=== PATIENT | male | born 1965 | race Caucasian/White ===

== ENCOUNTER 2018-11-10 13:45 | Outpatient (RCR) | payer OTHER, SELFPAY ==
--- NOTE | 2018-10-31 08:43 | PT.OIE ---
Current Diagnoses Pain in right shoulder (10/30/18) Other shoulder lesions, right shoulder (10/30/18) Provider Visit Care Team Role Provider Type Penny Aaron MD Attending Provider Physician Primary Care Provider Specialty: Internal Medicine Address: [address] [place] [address], [id number] Email: Physical Therapy Initial Evaluation PT-OP-A Visit Information Start: 10/30/18 15:46 Freq: Status: Active Protocol: Document 10/30/18 13:00 AMB (Rec: 10/31/18 08:37 AMB [email or web address]) Out-Patient Physical Therapy Visit Information Visit Information Visit Type Initial Evaluation Visit Start Time 13:00 Visit Stop Time 13:55 Total Visit Minutes 55 Visit Number 1 Number of TECHNICAL SOLUTION ARCHITECT Visits 0 Evaluation Information Evaluation Date 10/30/18 PT-OP-B Current Condition Start: 10/30/18 15:46 Freq: Status: Active Protocol: Document 10/30/18 13:00 AMB (Rec: 10/31/18 08:37 AMB [email or web address]) Current Condition History of Current Condition Onset Date September 2018 Current Complaints R shoulder pain History of Current Condition The patient reports some right shoulder discomfort after sleeping on his shoulder wrong years ago. A week ago the pain worsened significantly, and he is unsure exactly why. He does lift a lot at work, but denies a specific painful event. Since that time he has had pain dressing, shifting his trunk into gear, he uses his left arm predominantly at work to avoid pain, and has pain lifting the right arm to shoulder height or above. Prior Treatments and Tests Massage therapy, it hurts at times Prior Functional Status Baseline Function- ADL's Independent Baseline Function- Mobility Independent Current Functional Impairments (Reported) Functional Limitations- ADL's careful and slow with dressing , washing Functional Limitations- Work/School Uses left arm instead of right (pt is right hand dominant) Personal Factors Other Personal Factors That May Effect Pt works 12 hours shifts and Therapy/Recovery this may make it difficult to attend appointments PT-OP-C Subjective Start: 10/30/18 15:46 Freq: Status: Active Protocol: Document 10/30/18 13:00 AMB (Rec: 10/31/18 08:37 AMB [email or web address]) Patient Questionnaires Quick Dash- Upper Extremity Quick Dash UE Score 52 Quick Dash UE Impairment 40 to 59% Impaired (Score 40- 59) OP-PT Pain Assessment Pain Assessment Grid Paper Pain Assessment Grid Completed Yes Location Right Shoulder Pain Location Details anterior/lateral shoulder Intensity 4 Scale Used Numeric (1 - 10) PT-OP-J Posture/Palpation/Skin Start: 10/30/18 15:46 Freq: Status: Active Protocol: Document 10/30/18 13:00 AMB (Rec: 10/30/18 16:22 AMB [email or web address]) Posture Evaluation Comments Posture Comments Mild forward shoulder posture Palpation Assessment Location One Palpation Location R shoulder Palpation Details Tenderness over anterior shoulder into biceps. Tenderness at lateral shoulder down to elbow. PT-OP-K Range of Motion Start: 10/30/18 15:46 Freq: Status: Active Protocol: Document 10/30/18 13:00 AMB (Rec: 10/30/18 16:17 AMB [email or web address]) Shoulder Goniometric Range of Motion Shoulder Measured in Degrees Right Passive Testing Position Supine Flexion 115 Extension 60 Abduction 100 External Rotation at 90 degrees 60 Abduction Internal Rotation 10 Left Passive Shoulder ROM WFL Yes Shoulder ROM Limitations Shoulder ROM Limitations Muscle Weakness Pain PT-OP-L Special Tests Start: 10/30/18 15:46 Freq: Status: Active Protocol: Document 10/30/18 13:00 AMB (Rec: 10/30/18 16:11 AMB [email or web address]) Special Tests Shoulder Special Tests Lift-Off Rotator Cuff Test Results negative Neer Impingement Test Results negative IR/Horizontal ADD Impingement Test Results positive on right PT-OP-M Strength Start: 10/30/18 15:46 Freq: Status: Active Protocol: Document 10/30/18 13:00 AMB (Rec: 10/30/18 16:17 AMB [email or web address]) Shoulder Strength Shoulder Manual Muscle Testing Right Flexion 4 Good Extension 4+ Good+ Abduction (C5) 4- Good- External Rotation 4- Good- Internal Rotation 4- Good- PT-OP-Q Treatments Start: 10/30/18 15:46 Freq: Status: Active Protocol: Document 10/30/18 13:00 AMB (Rec: 10/30/18 16:13 AMB [email or web address]) Therapeutic Exercises Sitting Exercises 1 Sitting Exercise Name brayden Reps/Minutes 2 min ea Comments flex, abd, IR Standing Exercises 2 Standing Exercise Name abd isometric Reps/Minutes 5x10 1 Standing Exercise Name ER isometric Reps/Minutes 510 PT-OP-R Modalities Start: 10/30/18 15:46 Freq: Status: Active Protocol: Document 10/30/18 13:00 AMB (Rec: 10/30/18 16:13 AMB [email or web address]) Hot Pack/Cold Pack Treatment Cold Pack Location R shoulder Patient Position Hooklying Treatment Duration (minutes) 10 PT-OP-T Assessment and Plan Start: 10/30/18 15:46 Freq: Status: Active Protocol: Document 10/30/18 13:00 AMB (Rec: 10/31/18 07:31 AMB [email or web address]) Physical Therapy Assessment Rehab Potential Rehabilitation Potential Good Evaluation Complexity Number of Personal Factors/Comorbidities 1-2 Number of Body Systems Impaired 3 Clinical Presentation at Evaluation Evolving Impairments Impairments Pain Posture ROM Soft Tissue Mobility Strength Goals Three Impairment ADLs Short Term Goal (STG) The patient will perform all upper body dressing with 3/10 shoulder pain or less. STG Duration 4 weeks Heatset Winder Operator Goal (LTG) The patient will drive with his right hand without an increase in baseline pain. LTG Duration 8 weeks Two Impairment Strength Short Term Goal (STG) The patient will lift 5# to shoulder height without an increase in shoulder pain. STG Duration 4 weeks Heatset Winder Operator Goal (LTG) The patient will lift 20# to shoulder height without an increase in pain. LTG Duration 8 weeks One Impairment ROM Short Term Goal (STG) The patient will increase his active flexion ROM to 160 degrees without an increase in pain. STG Duration 4 weeks Senior Care Goal (LTG) The patient will increase his active internal rotation ROM so that he can reach behind his back to don/doff his pants and belt without shoulder pain. LTG Duration 8 weeks Assessment Summary Assessment The patient attends PT with a likely history of shoulder impingement which has worsened now to the point of rotator cuff tendonitis. 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 Pain limits his range of motion in mid range, but he continues to have good range of motion after that painful arc. He does have weakness into external rotation and abduction and restricted range into internal rotation. He will benefit from manual therapy and instruction in a safe exercise program, as well as lifting techniques to reduce the strain on his shoulder given the acute exacerbation of this chronic issue. Physical Therapy Plan Frequency and Duration Frequency of Treatment 2x/Week Duration of Treatment 8 weeks Plan of Care Start Date 10/30/18 Plan of Care End Date 12/25/17 Therapeutic Interventions Therapeutic Interventions Home Exercise Program Joint Mobilizations Manual Therapy Neuromuscular Re-education Self-Care/Home Management Soft Tissue Mobilization Therapeutic Activities Therapeutic Exercises Modalities Cold Pack/Ice Massage Electric Stimulation Hot Packs Ultrasound Next Visit Focus/Plan Next Note Type Treatment Note Next Visit Plan Progress shoulder stabilization, AAROM as tolerated
--- NOTE | 2018-11-02 11:58 | PT.OTN ---
Physical Therapy Treatment Note PT-OP-A Visit Information Start: 10/30/18 15:46 Freq: Status: Active Protocol: Document 11/02/18 09:45 AMB (Rec: 11/02/18 11:58 AMB [email or web address]) Out-Patient Physical Therapy Visit Information Visit Information Visit Type Treatment Note Visit Start Time 09:45 Visit Stop Time 10:30 Total Visit Minutes 50 Visit Number 2 Evaluation Information Evaluation Date 10/30/18 PT-OP-B Current Condition Start: 10/30/18 15:46 Freq: Status: Active Protocol: Document 10/30/18 13:00 AMB (Rec: 10/31/18 08:37 AMB [email or web address]) Current Condition History of Current Condition Onset Date September 2018 Current Complaints R shoulder pain History of Current Condition The patient reports some right shoulder discomfort after sleeping on his shoulder wrong years ago. A week ago the pain worsened significantly, and he is unsure exactly why. He does lift a lot at work, but denies a specific painful event. Since that time he has had pain dressing, shifting his trunk into gear, he uses his left arm predominantly at work to avoid pain, and has pain lifting the right arm to shoulder height or above. Prior Treatments and Tests Massage therapy, it hurts at times Prior Functional Status Baseline Function- ADL's Independent Baseline Function- Mobility Independent Current Functional Impairments (Reported) Functional Limitations- ADL's careful and slow with dressing , washing Functional Limitations- Work/School Uses left arm instead of right (pt is right hand dominant) Personal Factors Other Personal Factors That May Effect Pt works 12 hours shifts and Therapy/Recovery this may make it difficult to attend appointments PT-OP-C Subjective Start: 10/30/18 15:46 Freq: Status: Active Protocol: Document 11/02/18 09:45 AMB (Rec: 11/02/18 11:58 AMB [email or web address]) OP-PT Subjective Patient Comments Patient Comments Pt reports isometrics are fine until the last few and then he can feel them. PT-OP-J Posture/Palpation/Skin Start: 10/30/18 15:46 Freq: Status: Active Protocol: Document 10/30/18 13:00 AMB (Rec: 10/30/18 16:22 AMB [email or web address]) Posture Evaluation Comments Posture Comments Mild forward shoulder posture Palpation Assessment Location One Palpation Location R shoulder Palpation Details Tenderness over anterior shoulder into biceps. Tenderness at lateral shoulder down to elbow. PT-OP-K Range of Motion Start: 10/30/18 15:46 Freq: Status: Active Protocol: Document 10/30/18 13:00 AMB (Rec: 10/30/18 16:17 AMB [email or web address]) Shoulder Goniometric Range of Motion Shoulder Measured in Degrees Right Passive Testing Position Supine Flexion 115 Extension 60 Abduction 100 External Rotation at 90 degrees 60 Abduction Internal Rotation 10 Left Passive Shoulder ROM WFL Yes Shoulder ROM Limitations Shoulder ROM Limitations Muscle Weakness Pain PT-OP-L Special Tests Start: 10/30/18 15:46 Freq: Status: Active Protocol: Document 10/30/18 13:00 AMB (Rec: 10/30/18 16:11 AMB [email or web address]) Special Tests Shoulder Special Tests Lift-Off Rotator Cuff Test Results negative Neer Impingement Test Results negative IR/Horizontal ADD Impingement Test Results positive on right PT-OP-M Strength Start: 10/30/18 15:46 Freq: Status: Active Protocol: Document 10/30/18 13:00 AMB (Rec: 10/30/18 16:17 AMB [email or web address]) Shoulder Strength Shoulder Manual Muscle Testing Right Flexion 4 Good Extension 4+ Good+ Abduction (C5) 4- Good- External Rotation 4- Good- Internal Rotation 4- Good- PT-OP-Q Treatments Start: 10/30/18 15:46 Freq: Status: Active Protocol: Document 11/02/18 09:45 AMB (Rec: 11/02/18 11:58 AMB [email or web address]) Therapeutic Exercises Sitting Exercises 1 Sitting Exercise Name brayden Reps/Minutes 2 min ea Comments flex, abd, IR Standing Exercises 4 Standing Exercise Name ER Resistance #2 tband Reps/Minutes 2x10 3 Standing Exercise Name rows Resistance #3 tband Reps/Minutes 2x10 2 Standing Exercise Name abd isometric Reps/Minutes 5x10 1 Standing Exercise Name ER isometric Reps/Minutes 510 Manual Therapy Treatment Soft Tissue Mobilization 1 Body Location lateral shoulder Mobilization Type Cross-Friction Manual Techniques 1 Type alternating isometrics Reps/Duration 10min Comments at 90 degrees of flexion, then 90 degrees of abduction PT-OP-R Modalities Start: 10/30/18 15:46 Freq: Status: Active Protocol: Document 10/30/18 13:00 AMB (Rec: 10/30/18 16:13 AMB [email or web address]) Hot Pack/Cold Pack Treatment Cold Pack Location R shoulder Patient Position Hooklying Treatment Duration (minutes) 10 PT-OP-T Assessment and Plan Start: 10/30/18 15:46 Freq: Status: Active Protocol: Document 11/02/18 09:45 AMB (Rec: 11/02/18 11:58 AMB [email or web address]) Physical Therapy Assessment Assessment Summary Assessment Pt continues to have pain with sleeping on his R shoulder. He is working, using mostly his L arm and this is creating back pain. Physical Therapy Plan Next Visit Focus/Plan Next Note Type Treatment Note Next Visit Plan Progress shoulder stabilization, working into shoulder height and above as tolerated.
--- NOTE | 2018-11-07 16:24 | PT.OTN ---
Physical Therapy Treatment Note PT-OP-A Visit Information Start: 10/30/18 15:46 Freq: Status: Active Protocol: Document 11/07/18 13:45 AMB (Rec: 11/07/18 14:39 AMB [email or web address]) Out-Patient Physical Therapy Visit Information Visit Information Visit Type Treatment Note Visit Start Time 13:45 Visit Stop Time 14:30 Total Visit Minutes 50 Visit Number 3 Evaluation Information Evaluation Date 10/30/18 PT-OP-B Current Condition Start: 10/30/18 15:46 Freq: Status: Active Protocol: Document 10/30/18 13:00 AMB (Rec: 10/31/18 08:37 AMB [email or web address]) Current Condition History of Current Condition Onset Date September 2018 Current Complaints R shoulder pain History of Current Condition The patient reports some right shoulder discomfort after sleeping on his shoulder wrong years ago. A week ago the pain worsened significantly, and he is unsure exactly why. He does lift a lot at work, but denies a specific painful event. Since that time he has had pain dressing, shifting his trunk into gear, he uses his left arm predominantly at work to avoid pain, and has pain lifting the right arm to shoulder height or above. Prior Treatments and Tests Massage therapy, it hurts at times Prior Functional Status Baseline Function- ADL's Independent Baseline Function- Mobility Independent Current Functional Impairments (Reported) Functional Limitations- ADL's careful and slow with dressing , washing Functional Limitations- Work/School Uses left arm instead of right (pt is right hand dominant) Personal Factors Other Personal Factors That May Effect Pt works 12 hours shifts and Therapy/Recovery this may make it difficult to attend appointments PT-OP-C Subjective Start: 10/30/18 15:46 Freq: Status: Active Protocol: Document 11/07/18 13:45 AMB (Rec: 11/07/18 14:39 AMB [email or web address]) OP-PT Subjective Patient Comments Patient Comments Pt feeling quite good today, has the week off work PT-OP-J Posture/Palpation/Skin Start: 10/30/18 15:46 Freq: Status: Active Protocol: Document 10/30/18 13:00 AMB (Rec: 10/30/18 16:22 AMB [email or web address]) Posture Evaluation Comments Posture Comments Mild forward shoulder posture Palpation Assessment Location One Palpation Location R shoulder Palpation Details Tenderness over anterior shoulder into biceps. Tenderness at lateral shoulder down to elbow. PT-OP-K Range of Motion Start: 10/30/18 15:46 Freq: Status: Active Protocol: Document 10/30/18 13:00 AMB (Rec: 10/30/18 16:17 AMB [email or web address]) Shoulder Goniometric Range of Motion Shoulder Measured in Degrees Right Passive Testing Position Supine Flexion 115 Extension 60 Abduction 100 External Rotation at 90 degrees 60 Abduction Internal Rotation 10 Left Passive Shoulder ROM WFL Yes Shoulder ROM Limitations Shoulder ROM Limitations Muscle Weakness Pain PT-OP-L Special Tests Start: 10/30/18 15:46 Freq: Status: Active Protocol: Document 10/30/18 13:00 AMB (Rec: 10/30/18 16:11 AMB [email or web address]) Special Tests Shoulder Special Tests Lift-Off Rotator Cuff Test Results negative Neer Impingement Test Results negative IR/Horizontal ADD Impingement Test Results positive on right PT-OP-M Strength Start: 10/30/18 15:46 Freq: Status: Active Protocol: Document 10/30/18 13:00 AMB (Rec: 10/30/18 16:17 AMB [email or web address]) Shoulder Strength Shoulder Manual Muscle Testing Right Flexion 4 Good Extension 4+ Good+ Abduction (C5) 4- Good- External Rotation 4- Good- Internal Rotation 4- Good- PT-OP-Q Treatments Start: 10/30/18 15:46 Freq: Status: Active Protocol: Document 11/07/18 13:45 AMB (Rec: 11/07/18 16:23 AMB [email or web address]) Gym Equipment Cable Column (Body Solid) Rows Resistance 50 Reps/Time 2x12 Therapeutic Exercises Standing Exercises 8 Standing Exercise Name plinth push up Reps/Minutes 10 7 Standing Exercise Name shoulder abduction Resistance 3# Reps/Minutes 2x10 Comments bent elbow 6 Standing Exercise Name pec stretch Reps/Minutes 30x2 Comments corner 5 Standing Exercise Name shoulder flexion Resistance 3# Comments shoulder height Manual Therapy Treatment Soft Tissue Mobilization 1 Body Location lateral shoulder Mobilization Type Cross-Friction Manual Techniques 1 Type alternating isometrics Reps/Duration 10min Comments at 90 degrees of flexion, then 90 degrees of abduction PT-OP-R Modalities Start: 10/30/18 15:46 Freq: Status: Active Protocol: Document 10/30/18 13:00 AMB (Rec: 10/30/18 16:13 AMB [email or web address]) Hot Pack/Cold Pack Treatment Cold Pack Location R shoulder Patient Position Hooklying Treatment Duration (minutes) 10 PT-OP-T Assessment and Plan Start: 10/30/18 15:46 Freq: Status: Active Protocol: Document 11/07/18 13:45 AMB (Rec: 11/07/18 16:23 AMB [email or web address]) Physical Therapy Assessment Assessment Summary Assessment Pt has been able to sleep on his R shoulder a little, continues to have discomfort in the anterior shoulder with deep palpation, but otherwise doing well with increased exercises. Needs to return to a high level of funcion for work. Physical Therapy Plan Next Visit Focus/Plan Next Note Type Treatment Note Next Visit Plan Progress shoulder stabilization, working into shoulder height and above as tolerated.
--- NOTE | 2018-11-10 15:42 | PT.OTN ---
Physical Therapy Treatment Note PT-OP-A Visit Information Start: 10/30/18 15:46 Freq: Status: Active Protocol: Document 11/10/18 13:45 AMB (Rec: 11/10/18 14:35 AMB [email or web address]) Out-Patient Physical Therapy Visit Information Visit Information Visit Type Treatment Note Visit Start Time 13:45 Visit Stop Time 14:30 Total Visit Minutes 45 Visit Number 4 PT-OP-B Current Condition Start: 10/30/18 15:46 Freq: Status: Active Protocol: Document 10/30/18 13:00 AMB (Rec: 10/31/18 08:37 AMB [email or web address]) Current Condition History of Current Condition Onset Date September 2018 Current Complaints R shoulder pain History of Current Condition The patient reports some right shoulder discomfort after sleeping on his shoulder wrong years ago. A week ago the pain worsened significantly, and he is unsure exactly why. He does lift a lot at work, but denies a specific painful event. Since that time he has had pain dressing, shifting his trunk into gear, he uses his left arm predominantly at work to avoid pain, and has pain lifting the right arm to shoulder height or above. Prior Treatments and Tests Massage therapy, it hurts at times Prior Functional Status Baseline Function- ADL's Independent Baseline Function- Mobility Independent Current Functional Impairments (Reported) Functional Limitations- ADL's careful and slow with dressing , washing Functional Limitations- Work/School Uses left arm instead of right (pt is right hand dominant) Personal Factors Other Personal Factors That May Effect Pt works 12 hours shifts and Therapy/Recovery this may make it difficult to attend appointments PT-OP-C Subjective Start: 10/30/18 15:46 Freq: Status: Active Protocol: Document 11/10/18 13:45 AMB (Rec: 11/10/18 14:35 AMB [email or web address]) OP-PT Subjective Patient Comments Patient Comments Pt reports no soreness after last visit. PT-OP-J Posture/Palpation/Skin Start: 10/30/18 15:46 Freq: Status: Active Protocol: Document 10/30/18 13:00 AMB (Rec: 10/30/18 16:22 AMB [email or web address]) Posture Evaluation Comments Posture Comments Mild forward shoulder posture Palpation Assessment Location One Palpation Location R shoulder Palpation Details Tenderness over anterior shoulder into biceps. Tenderness at lateral shoulder down to elbow. PT-OP-K Range of Motion Start: 10/30/18 15:46 Freq: Status: Active Protocol: Document 10/30/18 13:00 AMB (Rec: 10/30/18 16:17 AMB [email or web address]) Shoulder Goniometric Range of Motion Shoulder Measured in Degrees Right Passive Testing Position Supine Flexion 115 Extension 60 Abduction 100 External Rotation at 90 degrees 60 Abduction Internal Rotation 10 Left Passive Shoulder ROM WFL Yes Shoulder ROM Limitations Shoulder ROM Limitations Muscle Weakness Pain PT-OP-L Special Tests Start: 10/30/18 15:46 Freq: Status: Active Protocol: Document 10/30/18 13:00 AMB (Rec: 10/30/18 16:11 AMB [email or web address]) Special Tests Shoulder Special Tests Lift-Off Rotator Cuff Test Results negative Neer Impingement Test Results negative IR/Horizontal ADD Impingement Test Results positive on right PT-OP-M Strength Start: 10/30/18 15:46 Freq: Status: Active Protocol: Document 10/30/18 13:00 AMB (Rec: 10/30/18 16:17 AMB [email or web address]) Shoulder Strength Shoulder Manual Muscle Testing Right Flexion 4 Good Extension 4+ Good+ Abduction (C5) 4- Good- External Rotation 4- Good- Internal Rotation 4- Good- PT-OP-Q Treatments Start: 10/30/18 15:46 Freq: Status: Active Protocol: Document 11/10/18 13:45 AMB (Rec: 11/10/18 14:35 AMB [email or web address]) Gym Equipment Cable Column (Body Solid) Lat Pull Down Resistance 60 Reps/Time 2x10 Therapeutic Exercises Sidelying Exercises 2 Sidelying Exercise Name shoulder abd Resistance 5# Reps/Minutes 2x10 1 Sidelying Exercise Name shoulder ER Resistance 3# Reps/Minutes 2x10 Standing Exercises 9 Standing Exercise Name body blade Reps/Minutes 2x10 Comments flx abd 8 Standing Exercise Name plinth push up Reps/Minutes 10 PT-OP-R Modalities Start: 10/30/18 15:46 Freq: Status: Active Protocol: Document 10/30/18 13:00 AMB (Rec: 10/30/18 16:13 AMB [email or web address]) Hot Pack/Cold Pack Treatment Cold Pack Location R shoulder Patient Position Hooklying Treatment Duration (minutes) 10 PT-OP-T Assessment and Plan Start: 10/30/18 15:46 Freq: Status: Active Protocol: Document 11/10/18 13:45 AMB (Rec: 11/10/18 14:35 AMB [email or web address]) Physical Therapy Assessment Goals Three Impairment ADLs Short Term Goal (STG) The patient will perform all upper body dressing with 3/10 shoulder pain or less. STG Duration 4 weeks Industrial Psychology Professor Goal (LTG) The patient will drive with his right hand without an increase in baseline pain. LTG Duration 8 weeks Two Impairment Strength Short Term Goal (STG) The patient will lift 5# to shoulder height without an increase in shoulder pain. STG Duration 4 weeks Industrial Psychology Professor Goal (LTG) The patient will lift 20# to shoulder height without an increase in pain. LTG Duration 8 weeks One Impairment ROM Short Term Goal (STG) The patient will increase his active flexion ROM to 160 degrees without an increase in pain. STG Duration 4 weeks Industrial Psychology Professor Goal (LTG) The patient will increase his active internal rotation ROM so that he can reach behind his back to don/doff his pants and belt without shoulder pain. LTG Duration 8 weeks Assessment Summary Assessment Pt was able to tolerate all exercises well, encouraged to return to lifting routine at [employer] and or continue with HEP. Physical Therapy Plan Next Visit Focus/Plan Next Note Type Treatment Note Next Visit Plan Progress shoulder stabilization, working into shoulder height and above as tolerated.
--- NOTE | 2018-12-05 09:48 | PT.OPDS ---
Current Diagnoses Pain in right shoulder (11/10/18) Provider Visit Care Team Role Provider Type Penny Aaron MD Attending Provider Physician Primary Care Provider Specialty: Internal Medicine Address: [address] [place] [address], [facility] Email: Visit Number Visit Number 4 Discharge Summary PT-OP-B Current Condition Start: 10/30/18 15:46 Freq: Status: Active Protocol: Document 10/30/18 13:00 AMB (Rec: 10/31/18 08:37 AMB [email or web address]) Current Condition History of Current Condition Onset Date September 2018 Current Complaints R shoulder pain History of Current Condition The patient reports some right shoulder discomfort after sleeping on his shoulder wrong years ago. A week ago the pain worsened significantly, and he is unsure exactly why. He does lift a lot at work, but denies a specific painful event. Since that time he has had pain dressing, shifting his trunk into gear, he uses his left arm predominantly at work to avoid pain, and has pain lifting the right arm to shoulder height or above. Prior Treatments and Tests Massage therapy, it hurts at times Prior Functional Status Baseline Function- ADL's Independent Baseline Function- Mobility Independent Current Functional Impairments (Reported) Functional Limitations- ADL's careful and slow with dressing , washing Functional Limitations- Work/School Uses left arm instead of right (pt is right hand dominant) Personal Factors Other Personal Factors That May Effect Pt works 12 hours shifts and Therapy/Recovery this may make it difficult to attend appointments PT-OP-C Subjective Start: 10/30/18 15:46 Freq: Status: Active Protocol: Document 11/10/18 13:45 AMB (Rec: 11/10/18 14:35 AMB [email or web address]) OP-PT Subjective Patient Comments Patient Comments Pt reports no soreness after last visit. PT-OP-J Posture/Palpation/Skin Start: 10/30/18 15:46 Freq: Status: Active Protocol: Document 10/30/18 13:00 AMB (Rec: 10/30/18 16:22 AMB [email or web address]) Posture Evaluation Comments Posture Comments Mild forward shoulder posture Palpation Assessment Location One Palpation Location R shoulder Palpation Details Tenderness over anterior shoulder into biceps. Tenderness at lateral shoulder down to elbow. PT-OP-K Range of Motion Start: 10/30/18 15:46 Freq: Status: Active Protocol: Document 10/30/18 13:00 AMB (Rec: 10/30/18 16:17 AMB [email or web address]) Shoulder Goniometric Range of Motion Shoulder Measured in Degrees Right Passive Testing Position Supine Flexion 115 Extension 60 Abduction 100 External Rotation at 90 degrees 60 Abduction Internal Rotation 10 Left Passive Shoulder ROM WFL Yes Shoulder ROM Limitations Shoulder ROM Limitations Muscle Weakness Pain PT-OP-L Special Tests Start: 10/30/18 15:46 Freq: Status: Active Protocol: Document 10/30/18 13:00 AMB (Rec: 10/30/18 16:11 AMB [email or web address]) Special Tests Shoulder Special Tests Lift-Off Rotator Cuff Test Results negative Neer Impingement Test Results negative IR/Horizontal ADD Impingement Test Results positive on right PT-OP-M Strength Start: 10/30/18 15:46 Freq: Status: Active Protocol: Document 10/30/18 13:00 AMB (Rec: 10/30/18 16:17 AMB [email or web address]) Shoulder Strength Shoulder Manual Muscle Testing Right Flexion 4 Good Extension 4+ Good+ Abduction (C5) 4- Good- External Rotation 4- Good- Internal Rotation 4- Good- PT-OP-T Assessment and Plan Start: 10/30/18 15:46 Freq: Status: Active Protocol: Document 12/05/18 09:42 AMB (Rec: 12/05/18 09:48 AMB [email or web address]) Physical Therapy Assessment Goals Three Impairment ADLs Short Term Goal (STG) The patient will perform all upper body dressing with 3/10 shoulder pain or less. STG Duration MET Correction Goal (LTG) The patient will drive with his right hand without an increase in baseline pain. LTG Duration MET Two Impairment Strength Short Term Goal (STG) The patient will lift 5# to shoulder height without an increase in shoulder pain. STG Duration MET [employer] Goal (LTG) The patient will lift 20# to shoulder height without an increase in pain. LTG Duration MET One Impairment ROM Short Term Goal (STG) The patient will increase his active flexion ROM to 160 degrees without an increase in pain. STG Duration MET Correction Goal (LTG) The patient will increase his active internal rotation ROM so that he can reach behind his back to don/doff his pants and belt without shoulder pain. LTG Duration MET Assessment Summary Assessment Patient needed to cancel his last appointment and called in to say that he is all better. At the last appointment that he attended he was doing much better and was tolerating his exercises well. We encouraged him to continue with his HEP and return to exercising in the gym as he can with is busy schedule. Physical Therapy Plan Discharge Physical Therapy Discharge Reasons Goals Met
== END 2019-01-17 08:55 ==
LOC: PHYS 13:45
PROVIDERS: PCP Internal Medicine; Visit Provider Internal Medicine
DX: M25.511 Pain in right shoulder (principal)
CPT/HCPCS: 97010; 97110; 97140; 97162

== ENCOUNTER → 2020-05-01 18:29 | Outpatient (ROUT) | payer OTHER, SELFPAY | PROVIDERS: PCP Internal Medicine; Visit Provider Physician Assistant | DX: R21 Rash and other nonspecific skin eruption (principal) | CPT/HCPCS: 87070; 87075; 87205; 87252 ==

== ENCOUNTER → 2020-05-05 11:19 | Outpatient (CLI) | payer OTHER, SELFPAY ==
[2020-05-05 12:22] LABS: Add Manual Diff / Slide Review NO; Basophils Absolute Auto 0 /uL (0-100); Basophils Percent Auto 0.4 % (0-2); Eosinophils Absolute Auto 100 /uL (0-450); Eosinophils Percent Auto 0.8 % (2-4); Hematocrit 38.5 % (41-53); Lymphocytes Absolute Auto 1200 /uL (1100-4500); Lymphocytes Percent Auto 12.2 % (25-40); Mean Corpuscular HGB Conc 33.7 % (30-36); Mean Corpuscular Hemoglobin 30.4 PG (26-34); Mean Corpuscular Volume 90.1 fL (80-100); Monocytes Absolute Auto 400 /uL (0-900); Monocytes Percent Auto 4.4 % (3-14); Neutrophils Absolute Auto 7900 /uL (1500-7000); Neutrophils Percent Auto 82.2 % (50-75); Platelet Count 368 X10^3/uL (150-400); Red Blood Cell Count 4.27 X10^6/uL (4.5-5.9); Red Cell Distribution Width 13.7 % (11.6-14.8); White Blood Cell Count 9.6 X10^3/uL (4.5-11.0)
[2020-05-05 12:39] LABS: Erythrocyte Sedimentation Rate 56 MM/HR (0-15)
[2020-05-05 13:15] LABS: BUN Creatinine Ratio 19.1 (6-22); Blood Urea Nitrogen 21 mg/dL (9-20); Carbon Dioxide 25 mmol/L (22-32); Chloride 102 mmol/L (98-107); Estimated Glomerular Filt Rate > 60.0 mL/min (>60); Glucose 145 mg/dL (70-100); HEMOLYSIS < 15 (0-50); Sodium 137 mmol/L (137-145)
[2020-05-05 13:18] LABS: C-Reactive Protein Quant < 0.5 mg/dL (<1.0)
== END ==
PROVIDERS: PCP Internal Medicine; Referring Provider Physician Assistant; Visit Provider Physician Assistant
DX: R21 Rash and other nonspecific skin eruption (principal)
CPT/HCPCS: 36415; 80048; 85025; 85651; 86140

== ENCOUNTER → 2020-05-23 12:41 | Outpatient (CLI) | payer OTHER, SELFPAY ==
[2020-05-23 13:27] LABS: Add Manual Diff / Slide Review NO; Basophils Absolute Auto 0 /uL (0-100); Basophils Percent Auto 0.4 % (0-2); Eosinophils Absolute Auto 100 /uL (0-450); Eosinophils Percent Auto 1.4 % (2-4); Hematocrit 37.8 % (41-53); Hemoglobin 12.9 g/dL (13.5-17.5); Lymphocytes Absolute Auto 1900 /uL (1100-4500); Lymphocytes Percent Auto 26.8 % (25-40); Mean Corpuscular Hemoglobin 30.5 PG (26-34); Mean Corpuscular Volume 89.5 fL (80-100); Monocytes Absolute Auto 700 /uL (0-900); Monocytes Percent Auto 9.2 % (3-14); Neutrophils Absolute Auto 4400 /uL (1500-7000); Neutrophils Percent Auto 62.2 % (50-75); Platelet Count 271 X10^3/uL (150-400); Red Blood Cell Count 4.23 X10^6/uL (4.5-5.9); Red Cell Distribution Width 13.8 % (11.6-14.8); White Blood Cell Count 7.1 X10^3/uL (4.5-11.0)
[2020-05-26 14:32] LABS: ANA Screen, IFA Negative (.)
== END ==
PROVIDERS: PCP Internal Medicine; Referring Provider Physician Assistant; Visit Provider Physician Assistant
DX: Z48.02 Encounter for removal of sutures (principal); L98.2 Febrile neutrophilic dermatosis [Sweet]
CPT/HCPCS: 36415; 85025; 86038

== ENCOUNTER 2020-12-03 11:12 | Emergency (ER) | payer OTHER, SELFPAY ==
[2020-12-03 11:15] VITALS: BP 141/87; PULSE 84; RESP 18; TEMP 36.8; O2SAT 99; BMI 32.3
--- NOTE | 2020-12-03 11:21 | DI.RAD.S_ITS ---
PROCEDURE: XR CHEST 2V INDICATIONS: chest pain TECHNIQUE: 2 views of the chest were acquired. COMPARISON: , , ABDOMEN 3 VIEW, 10/13/2012, 6:24. , , ABDOMEN ACUTE SERIES, 10/14/2012, 9:50. FINDINGS: Surgical changes and devices: None. Lungs and pleura: Lungs are clear. No pleural effusions or pneumothorax. Mediastinum: Mediastinal contours are normal. Heart size is normal. Bones and chest wall: No suspicious bony abnormalities. Soft tissues appear unremarkable. IMPRESSION: Stable radiographic evaluation of the chest without acute cardiopulmonary abnormalities or focal airspace disease. Dictated by: Arun Ordaz M.D. on 12/03/2020 at 12:22 Approved by: Arun Ordaz M.D. on 12/03/2020 at 12:26
[2020-12-03 12:02] LABS: PTT Partial Thromboplastin Tim 31 SECONDS (26.4-36.2)
[2020-12-03 12:03] LABS: Alanine Aminotransferase 45 IU/L (<50); Albumin 4.3 g/dL (3.5-5.0); Albumin Globulin Ratio 1.3 (1.0-2.8); Alkaline Phosphatase 123 U/L (38-126); Aspartate Aminotransferase 28 IU/L (17-59); BUN Creatinine Ratio 19.4 (6-22); Bilirubin Total 0.3 mg/dL (0.2-1.3); Blood Urea Nitrogen 18 mg/dL (9-20); Calcium 9.4 mg/dL (8.4-10.2); Carbon Dioxide 28 mmol/L (22-32); Chloride 102 mmol/L (98-107); Creatine Kinase 92 U/L (55-170); Estimated Glomerular Filt Rate > 60.0 mL/min (>60); Globulin 3.3 g/dL (1.7-4.1); Glucose 101 mg/dL (70-100); HEMOLYSIS < 15 (0-50); Lipase 79 U/L (23-300); Potassium 4.5 mmol/L (3.4-5.1); Sodium 137 mmol/L (137-145); Total Protein 7.6 g/dL (6.3-8.2)
[2020-12-03 12:08] LABS: Add Manual Diff / Slide Review NO; Basophils Absolute Auto 0 /uL (0-100); Basophils Percent Auto 0.3 % (0-2); Eosinophils Absolute Auto 200 /uL (0-450); Eosinophils Percent Auto 3.2 % (2-4); Hematocrit 38.9 % (41-53); Hemoglobin 13.1 g/dL (13.5-17.5); Lymphocytes Absolute Auto 1600 /uL (1100-4500); Lymphocytes Percent Auto 23.2 % (25-40); Mean Corpuscular HGB Conc 33.8 % (30-36); Mean Corpuscular Hemoglobin 30.5 PG (26-34); Mean Corpuscular Volume 90.1 fL (80-100); Monocytes Absolute Auto 600 /uL (0-900); Monocytes Percent Auto 8.2 % (3-14); Neutrophils Absolute Auto 4400 /uL (1500-7000); Neutrophils Percent Auto 65.1 % (50-75); Platelet Count 270 X10^3/uL (150-400); Red Blood Cell Count 4.32 X10^6/uL (4.5-5.9); Red Cell Distribution Width 13.8 % (11.6-14.8); White Blood Cell Count 6.8 X10^3/uL (4.5-11.0)
[2020-12-03 12:15] LABS: Troponin I < 0.012 ng/mL (0.01-0.034)
--- NOTE | 2020-12-03 13:15 | ED_ITS ---
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 Patient states he has substernal aching chest pain that occurs a few times a day. He states it occurs at random and after he eats. Patient denies any alleviating symptoms. He denies any radiation to the pain. Patient states the severity and frequency has increased over the past few weeks. He states when he developed the pain he takes aspirin, he does not feel like it affects his pain. Patient states approximately 2 years ago he had something similar, he was told he may have had a NC but had a complete workup including a stress test and nuclear test which was non concerning. Patient denies any associated symptoms such as shortness of breath, fevers, diaphoresis, dizziness, syncope, nausea, vomiting, diarrhea, abdominal pain or other concerns. Patient denies any cough or other illness. Patient denies any major medical issues such as diabetes or hypertension. Related Data Home Medications Medication Instructions Recorded Confirmed omeprazole #0 10/12/12 Allergies Allergy/AdvReac Type Severity Reaction Status Date / Time No Known Drug Allergies Allergy Verified 12/03/20 11:26 Review of Systems <ABHIJEET Melo - Last Filed: 12/03/20 16:33> Review of Systems Narrative: REVIEW OF SYSTEMS: GENERAL: Denies fever. HENT: No head trauma. CARDIOVASCULAR: Reports chest pain, see HPI. RESPIRATORY: No cough. GASTROINTESTINAL: No nausea. GENITOURINARY: No flank pain. MUSCULOSKELETAL: No pain. INTEGUMENTARY: No rash. NEURO: No numbness or tingling. PSYCH: No behavior or mood changes. Patient History <ABHIJEET Melo - Last Filed: 12/03/20 16:33> Medical History Sweets syndrome Social History Smoking Status: Current some day smoker Smoking Status: Current some day smoker tobacco type: cigarettes alcohol intake frequency: 0-2 drinks per day Substance Use Type: does not use Exam <ABHIJEET Melo - Last Filed: 12/03/20 16:33> Initial Vital Signs Initial Vital Signs: Vital Signs Temperature 98.2 F 12/03/20 11:15 Pulse Rate 84 12/03/20 11:15 Respiratory Rate 18 12/03/20 11:15 Blood Pressure 141/87 H 12/03/20 11:15 Pulse Oximetry 99 12/03/20 11:15 PHYSICAL EXAMINATION: GENERAL: Awake and alert, answers questions appropriately. HENT: Normocephalic, atraumatic. EYES: Conjunctiva pink, sclera white, no periorbital swelling. CHEST: Normal to inspection and without deformities. CARDIOVASCULAR: S1 and S2 sounds normal. Regular rate and rhythm, no murmurs, clicks, or bruits. No pedal edema. RESPIRATORY: Normal respiratory rate, trachea midline, airway patent. No stridor, nasal flaring or accessory muscle use. Lungs are clear in all norie[place] without wheeze, rhonchi, or crackles. GASTROINTESTINAL: Bowel sounds normoactive. Abdomen is soft and non-tender. No organomegaly. MUSCULOSKELETAL: Normal gait and coordination. Equal tone and mass bilaterally. EXTREMITIES: CMS intact. Moves all extremities. SKIN: Warm, dry, soft, appropriate color for ethnicity. No lesions, rashes, or wounds. NEURO: Alert and Oriented X 3. Good coordination. No ataxia, or sensory deficits, or cognitive issues. PSYCH: Appropriate affect and mood. <Ashley Sierra MD - Last Filed: 12/04/20 07:34> Initial Vital Signs Initial Vital Signs: Vital Signs Temperature 98.2 F 12/03/20 11:15 Pulse Rate 84 12/03/20 11:15 Respiratory Rate 18 12/03/20 11:15 Blood Pressure 141/87 H 12/03/20 11:15 Pulse Oximetry 99 12/03/20 11:15 Scores <ABHIJEET Melo - Last Filed: 12/03/20 16:33> HEART Score Heart Score history: Slightly Suspicious Heart Score EKG: Normal Heart Score Age: 45-64 years old Heart Score risk factors: 1-2 risk factors Heart Score troponin: < or = to normal limit Heart Score Total: 2 Course <TangelaABHIJEET Sanders - Last Filed: 12/03/20 16:33> Course Course Narrative: Patient continued to deny chest pain throughout his stay in the emergency department. Orders Ordered: ED Orders 12/03/20 11:21 XR chest 2V Stat EKG-12 Lead Stat 12/03/20 11:42 Complete Blood Count AUTO DIFF Stat Comprehensive Metabolic Panel Stat Lipase Stat Partial Thromboplastin Time Stat Prothrombin Time INR Stat Troponin & CK Cardiac Panel Stat 12/03/20 13:48 EKG-12 Lead Stat 12/03/20 13:49 Troponin I Stat Consultations Consultation #1: Patient staffed with Dr. Sierra, discussed test, test results, plan of care. Vital Signs Vital signs: Vital Signs - 8 hr 12/03/20 11:15 12/03/20 13:54 Temperature 98.2 F Pulse Rate 84 60 Respiratory Rate 18 18 Blood Pressure 141/87 H 150/78 H Pulse Oximetry 99 99 <Ashley Sierra MD - Last Filed: 12/04/20 07:34> Orders Ordered: ED Orders 12/03/20 11:21 XR chest 2V Stat EKG-12 Lead Stat 12/03/20 11:42 Complete Blood Count AUTO DIFF Stat Comprehensive Metabolic Panel Stat Lipase Stat Partial Thromboplastin Time Stat Prothrombin Time INR Stat Troponin & CK Cardiac Panel Stat 12/03/20 13:48 EKG-12 Lead Stat 12/03/20 13:49 Troponin I Stat Vital Signs Vital signs: Vital Signs - 8 hr 12/03/20 11:15 12/03/20 13:54 Temperature 98.2 F Pulse Rate 84 60 Respiratory Rate 18 18 Blood Pressure 141/87 H 150/78 H Pulse Oximetry 99 99 MDM - Chest Pain <Tangela ABHIJEET Crouch - Last Filed: 12/03/20 16:33> Medical Records Data Attestation: I reviewed the patient's medical records. Lab Data Attestation: I reviewed the patient's lab results. Result diagrams: 12/03/20 11:42 12/03/20 11:42 Labs: Lab Results 12/03/20 12/03/20 12/03/20 Range/Units 11:42 11:42 11:42 WBC 6.8 (4.5-11.0) X10^3/uL RBC 4.32 L (4.5-5.9) X10^6/uL Hgb 13.1 L (13.5-17.5) g/dL Hct 38.9 L (41-53) % MCV 90.1 (80-100) fL MCH 30.5 (26-34) PG MCHC 33.8 (30-36) % RDW 13.8 (11.6-14.8) % Plt Count 270 (150-400) X10^3/uL Neut % (Auto) 65.1 (50-75) % Lymph % (Auto) 23.2 L (25-40) % [place] % (Auto) 8.2 (3-14) % Eos % (Auto) 3.2 (2-4) % Baso % (Auto) 0.3 (0-2) % Neut # (Auto) 4400 (1885-8663) /uL Lymph # (Auto) 1600 (3438-0445) /uL [place] # (Auto) 600 (0-900) /uL Eos # (Auto) 200 (0-450) /uL Baso # (Auto) 0 (0-100) /uL PT 11.0 (10.1-12.7) SECONDS INR 1.0 (0.9-1.3) APTT 31 (26.4-36.2) SECONDS Sodium 137 (137-145) mmol/L Potassium 4.5 (3.4-5.1) mmol/L Chloride 102 (98-107) mmol/L Carbon Dioxide 28 (22-32) mmol/L BUN 18 (9-20) mg/dL Creatinine 0.93 (0.66-1.25) mg/dL Estimated GFR > 60.0 (>60) mL/min BUN/Creatinine Ratio 19.4 (6-22) Glucose 101 H (70-100) mg/dL Calcium 9.4 (8.4-10.2) mg/dL Total Bilirubin 0.3 (0.2-1.3) mg/dL AST 28 (17-59) IU/L ALT 45 (<50) IU/L Alkaline Phosphatase 123 (38-126) U/L Total Creatine Kinase 92 (55-170) U/L CK-MB (CK-2) TNP CK-MB (CK-2) Rel Index TNP Troponin I < 0.012 (0.01-0.034) ng/mL Total Protein 7.6 (6.3-8.2) g/dL Albumin 4.3 (3.5-5.0) g/dL Globulin 3.3 (1.7-4.1) g/dL Albumin/Globulin Ratio 1.3 (1.0-2.8) Lipase 79 (23-300) U/L 12/03/20 Range/Units 13:49 WBC (4.5-11.0) X10^3/uL RBC (4.5-5.9) X10^6/uL Hgb (13.5-17.5) g/dL Hct (41-53) % MCV (80-100) fL MCH (26-34) PG MCHC (30-36) % RDW (11.6-14.8) % Plt Count (150-400) X10^3/uL Neut % (Auto) (50-75) % Lymph % (Auto) (25-40) % [place] % (Auto) (3-14) % Eos % (Auto) (2-4) % Baso % (Auto) (0-2) % Neut # (Auto) (3736-5341) /uL Lymph # (Auto) (0153-8176) /uL [place] # (Auto) (0-900) /uL Eos # (Auto) (0-450) /uL Baso # (Auto) (0-100) /uL PT (10.1-12.7) SECONDS INR (0.9-1.3) APTT (26.4-36.2) SECONDS Sodium (137-145) mmol/L Potassium (3.4-5.1) mmol/L Chloride (98-107) mmol/L Carbon Dioxide (22-32) mmol/L BUN (9-20) mg/dL Creatinine (0.66-1.25) mg/dL Estimated GFR (>60) mL/min BUN/Creatinine Ratio (6-22) Glucose (70-100) mg/dL Calcium (8.4-10.2) mg/dL Total Bilirubin (0.2-1.3) mg/dL AST (17-59) IU/L ALT (<50) IU/L Alkaline Phosphatase (38-126) U/L Total Creatine Kinase (55-170) U/L CK-MB (CK-2) CK-MB (CK-2) Rel Index Troponin I < 0.012 (0.01-0.034) ng/mL Total Protein (6.3-8.2) g/dL Albumin (3.5-5.0) g/dL Globulin (1.7-4.1) g/dL Albumin/Globulin Ratio (1.0-2.8) Lipase (23-300) U/L Imaging Data Chest x-ray: Radiologist's Impression: [address] [id number] ReportSigned Patient: Simon Brock#: [id number]: 1965Acct:[id number] /Sex: 55 / MDate of Service: 12/03/20Loc: EDAccession Number: [id number] Procedure: XR chest 2V Ordering Provider: Ashley Sierra MD PROCEDURE: XR CHEST 2V INDICATIONS: chest pain TECHNIQUE: 2 views of the chest were acquired. COMPARISON: [facility], CR, ABDOMEN 3 VIEW, 10/13/2012, 6:24. [facility], CR, ABDOMEN ACUTE SERIES, 10/14/2012, 9:50. FINDINGS: Surgical changes and devices: None. Lungs and pleura: Lungs are clear. No pleural effusions or pneumothorax. Mediastinum: Mediastinal contours are normal. Heart size is normal. Bones and chest wall: No suspicious bony abnormalities. Soft tissues appear unremarkable. IMPRESSION: Stable radiographic evaluation of the chest without acute cardiopulmonary abnormalities or focal airspace disease. Dictated by: Arun Ordaz M.D. on 12/03/2020 at 12:22 Approved by: Arun Ordaz M.D. on 12/03/2020 at 12:26 ECG Data Interpretation: 1117: Sinus rhythm, rate 78, GA interval 128, QTC 433. No ST elevation or ST depression. T-wave inversion noted in V1. No ectopy. 1348: Sinus rhythm, rate 75, GA interval 157, QTC 417. No ST elevation or ST depression. No ectopy. T-wave inversion in V1. EKGs also viewed by Dr. Sierra per protcol. MDM Narrative Medical decision making narrative: 55-year-old male presents emergency de partment with chest pain. Unsure exact etiology, less likely ACS due to normal appearing EKG, normal repeat EKG, and serial negative troponins. Additionally, chest pain resolved prior to admission. Other differential includes GERD due to location of chest pain and the fact that it worsens after he eats. Patient was encouraged to start taking Additionally, his history of Sweet syndrome may be contributing. Patient has a heart score of 2, he is low risk at this point. Patient is a candidate for outpatient follow-up. He was encouraged to contact his primary care provider today or tomorrow to schedule an appointment. We discussed return precautions in detail, he is to return for any new or worsening symptoms. Patient agreed to plan of care verbalized understanding. <Ashley Sierra MD - Last Filed: 12/04/20 07:34> Lab Data Labs: Lab Results 12/03/20 12/03/20 12/03/20 Range/Units 11:42 11:42 11:42 WBC 6.8 (4.5-11.0) X10^3/uL RBC 4.32 L (4.5-5.9) X10^6/uL Hgb 13.1 L (13.5-17.5) g/dL Hct 38.9 L (41-53) % MCV 90.1 (80-100) fL MCH 30.5 (26-34) PG MCHC 33.8 (30-36) % RDW 13.8 (11.6-14.8) % Plt Count 270 (150-400) X10^3/uL Neut % (Auto) 65.1 (50-75) % Lymph % (Auto) 23.2 L (25-40) % [place] % (Auto) 8.2 (3-14) % Eos % (Auto) 3.2 (2-4) % Baso % (Auto) 0.3 (0-2) % Neut # (Auto) 4400 (9678-7735) /uL Lymph # (Auto) 1600 (8182-8370) /uL [place] # (Auto) 600 (0-900) /uL Eos # (Auto) 200 (0-450) /uL Baso # (Auto) 0 (0-100) /uL PT 11.0 (10.1-12.7) SECONDS INR 1.0 (0.9-1.3) APTT 31 (26.4-36.2) SECONDS Sodium 137 (137-145) mmol/L Potassium 4.5 (3.4-5.1) mmol/L Chloride 102 (98-107) mmol/L Carbon Dioxide 28 (22-32) mmol/L BUN 18 (9-20) mg/dL Creatinine 0.93 (0.66-1.25) mg/dL Estimated GFR > 60.0 (>60) mL/min BUN/Creatinine Ratio 19.4 (6-22) Glucose 101 H (70-100) mg/dL Calcium 9.4 (8.4-10.2) mg/dL Total Bilirubin 0.3 (0.2-1.3) mg/dL AST 28 (17-59) IU/L ALT 45 (<50) IU/L Alkaline Phosphatase 123 (38-126) U/L Total Creatine Kinase 92 (55-170) U/L CK-MB (CK-2) TNP CK-MB (CK-2) Rel Index TNP Troponin I < 0.012 (0.01-0.034) ng/mL Total Protein 7.6 (6.3-8.2) g/dL Albumin 4.3 (3.5-5.0) g/dL Globulin 3.3 (1.7-4.1) g/dL Albumin/Globulin Ratio 1.3 (1.0-2.8) Lipase 79 (23-300) U/L 12/03/20 Range/Units 13:49 WBC (4.5-11.0) X10^3/uL RBC (4.5-5.9) X10^6/uL Hgb (13.5-17.5) g/dL Hct (41-53) % MCV (80-100) fL MCH (26-34) PG MCHC (30-36) % RDW (11.6-14.8) % Plt Count (150-400) X10^3/uL Neut % (Auto) (50-75) % Lymph % (Auto) (25-40) % [place] % (Auto) (3-14) % Eos % (Auto) (2-4) % Baso % (Auto) (0-2) % Neut # (Auto) (8651-7062) /uL Lymph # (Auto) (3128-4417) /uL [place] # (Auto) (0-900) /uL Eos # (Auto) (0-450) /uL Baso # (Auto) (0-100) /uL PT (10.1-12.7) SECONDS INR (0.9-1.3) APTT (26.4-36.2) SECONDS Sodium (137-145) mmol/L Potassium (3.4-5.1) mmol/L Chloride (98-107) mmol/L Carbon Dioxide (22-32) mmol/L BUN (9-20) mg/dL Creatinine (0.66-1.25) mg/dL Estimated GFR (>60) mL/min BUN/Creatinine Ratio (6-22) Glucose (70-100) mg/dL Calcium (8.4-10.2) mg/dL Total Bilirubin (0.2-1.3) mg/dL AST (17-59) IU/L ALT (<50) IU/L Alkaline Phosphatase (38-126) U/L Total Creatine Kinase (55-170) U/L CK-MB (CK-2) CK-MB (CK-2) Rel Index Troponin I < 0.012 (0.01-0.034) ng/mL Total Protein (6.3-8.2) g/dL Albumin (3.5-5.0) g/dL Globulin (1.7-4.1) g/dL Albumin/Globulin Ratio (1.0-2.8) Lipase (23-300) U/L Discharge Plan Departure Patient Disposition: Home Clinical Impression: Chest pain Qualifiers: Chest pain type: unspecified Qualified Code(s): R07.9 - Chest pain, unspecified Instructions: DI for Chest Pain Activity Restrictions/Additional Instructions: Thank you for entrusting me with your care today. As discussed, your laboratory work, EKG, and chest x-ray are negative for any concerning symptoms. I suggest you start taking omeprazole 20mg every morning for the next 2 weeks. Please call your primary care provider today and discussed that you were seen in the emergency department for chest pain, schedule an appointment as soon as possible. Return emergency department for any new or worsening symptoms such as severe pain, shortness of breath, or any other concerns. Prescriptions: No Action omeprazole 40 MG capsule,delayed release(DR/EC) Qty: 0 RF: 0 Referrals: Cara Bartholomew PA-C [Primary Care Provider] - <Ashley Sierra MD - Last Filed: 12/04/20 07:34> Cosign ED Attending Cosignature Attestation: I was immediately available in the department for consultation throughout this patient's visit. I agree with documentation as above. Ashley Sierra MD
[2020-12-03 13:54] VITALS: BP 150/78; PULSE 60; RESP 18; O2SAT 99
[2020-12-03 14:23] LABS: Troponin I < 0.012 ng/mL (0.01-0.034)
== END 2020-12-03 14:54 | disposition home or self-care (01) ==
PROVIDERS: Emergency Medicine; Emergency Provider Nurse Practitioner; PCP Physician Assistant
DX: R07.9 Chest pain, unspecified (principal); L98.2 Febrile neutrophilic dermatosis [Sweet]; F17.210 Nicotine dependence, cigarettes, uncomplicated
CPT/HCPCS: 36415; 71046; 80053; 82550; 83690; 84484; 85025; 85610; 85730; 93005; 99284

== ENCOUNTER → 2022-08-25 10:11 | Outpatient (CLI) | payer OTHER, SELFPAY ==
[2022-08-25 11:21] LABS: COVID19 -Nasal RAPID Negative (Negative)
== END ==
PROVIDERS: Referring Provider Podiatrist; Visit Provider Podiatrist
DX: Z20.822 Contact with and (suspected) exposure to COVID-19 (principal)
CPT/HCPCS: 87635; C9803

== ENCOUNTER 2022-08-27 06:19 | Day surgery (SDC) | payer OTHER, SELFPAY ==
[2022-08-20 09:07] VITALS: BMI 33.7
[2022-08-27 06:53] VITALS: BMI 33.7
[2022-08-27 07:04] VITALS: BP 113/82; PULSE 84; RESP 16; TEMP 37.4; O2SAT 98
[2022-08-27] MEDS: LACTATED RINGERS 1,000 ML 100 ML IV (07:22)
--- NOTE | 2022-08-27 07:49 | PM.PREOP ---
Pre-operative Note COVID-19 COVID-19 status: Negative Result date/Date tested (Pos, Neg/Pending): 08/25/22 Interval Note History & Physical reviewed/Exam performed by Physician: Yes Changes to H&P: No
--- NOTE | 2022-08-27 07:50 | PM.OP.1 ---
Operative Date/Time/Diagnoses Date of procedure: 08/27/22 Time of procedure: 07:50 Pre-op diagnosis: Left great toe arthritis Post-op diagnosis: same Procedure & Clinicians Procedure: Left first metatarsophalangeal joint cheilectomy Same procedure as scheduled: Yes Indications: 57 year old male with painful arthritis to the left great toe. Conservative measures have failed to alleviate his pain and he wished to have surgical intervention at this time. We spoke with the risks, potential complications as well as expected outcomes and alternatives. Consent was signed, no contraindications to the procedure at this time. Surgeon: Reema Zaman Click Yes if Unassisted: Yes Anesthesia Type: General Operative Notes Closure Type: primary Specimen(s): none sent Estimated Blood Loss (mL): 15 Blood products transfused: none Procedure in detail: The patient was brought to the operating room and placed on the operating table in the supine position. Tourniquet was placed about the left ankle. Patient is well-padded and appropriately supported. After induction of general anesthesia the left foot and ankle were prepped and draped in the usual aseptic manner. The tourniquet was inflated. Incision was made over the left 1st metatarsal phalangeal joint. The incision was deepened through subcutaneous tissues being careful to identify and retract all vital neurovascular structures. All bleeders were cauterized and ligated as necessary. The capsule was entered dorsally at the joint and this exposed the significant spurring of the dorsal metatarsal head, proximal phalangeal base. Of note, the metatarsal head and phalangeal base showed wearing of cartilage surface, about 1/3 to 1/2 at the phalangeal base and 1/3 at the metatarsal head. The saw and rongeur were used to resect the dorsal joint spurs. A rasp was used to reduce the sharp edges of the bones. There was still limited motion on dorsiflexion and plantar flexion but it was improved from the preoperative status, no crepitus. The area was irrigated with copious amounts normal sterile saline. The tourniquet was deflated and a prompt hyperemic response was seen in the foot. Deep and subcutaneous closure was closed performed with Vicryl. Nylon suture used to close the skin. The foot was dressed with a lightly compressive sterile dressing and splint in alignment. Patient was then placed in a postoperative boot and transferred to PACU with vital signs stable. Complications: none Post-operative Condition: stable Disposition: PACU Plan for aftercare: Following a period of postoperative monitoring, the patient will be discharged to home on written and oral postoperative instructions including keeping the dressing dry and intact, no greater than 50% weight on the surgical foot, icing and elevating the foot when seated at home. DVT prevention techniques have been reviewed. For the 1st postoperative visit the dressing will be changed and close to the 2nd or 3rd postoperative week we will likely remove the sutures.
[2022-08-27] MEDS: CEFAZOLIN 2 GM/100 ML PREMIX 100 ML IV (08:05)
--- NOTE | 2022-08-27 08:24 | SUR.OPER ---
Supine on padded OR bed, head on pillow, arms secured on padded arm boards at <90 degrees abduction, legs uncrossed, safety belt at thigh, tape over blanket over right lower leg. left leg under control of surgeon. Gel pad under heels. Gel bump under left hip.
[2022-08-27] MEDS: BUPIVACAINE 0.5% (PF) VIAL 30 ML INJ (08:34)
[2022-08-27 09:02] VITALS: BP 145/78; PULSE 87; RESP 16; TEMP 37.1; O2SAT 94
[2022-08-27 09:07] VITALS: BP 107/70; PULSE 88; RESP 16; O2SAT 98
[2022-08-27 09:12] VITALS: BP 112/77; PULSE 88; RESP 16; O2SAT 98
[2022-08-27 09:13] VITALS: BP 98/68; PULSE 86; RESP 16; O2SAT 98
[2022-08-27 09:30] VITALS: BP 98/66; PULSE 99; RESP 16; TEMP 36.3; O2SAT 100
== END 2022-08-27 09:40 | disposition home or self-care (01) ==
PROVIDERS: Referring Provider Podiatrist; Visit Provider Podiatrist
PROC: (CPT 28289; principal; 2022-08-27 07:45)
DX: M19.072 Primary osteoarthritis, left ankle and foot (principal); M20.5X2 Other deformities of toe(s) (acquired), left foot; M25.775 Osteophyte, left foot
CPT/HCPCS: 28289; 01480; J0690; J1885; J2250; J2405; J2704; J2765; J3010

== ENCOUNTER → 2024-03-16 08:43 | Outpatient (CLI) | payer OTHER, SELFPAY ==
[2024-03-16 09:57] LABS: Add Manual Diff / Slide Review NO; Basophils Absolute Auto 0 /uL (0-100); Basophils Percent Auto 0.4 % (0-2); Eosinophils Absolute Auto 200 /uL (0-450); Eosinophils Percent Auto 2.5 % (2-4); Hematocrit 41.5 % (41-53); Hemoglobin 14.1 g/dL (13.5-17.5); Lymphocytes Absolute Auto 1800 /uL (1100-4500); Lymphocytes Percent Auto 23.6 % (25-40); Mean Corpuscular Hemoglobin 30.9 PG (26-34); Mean Corpuscular Volume 90.7 fL (80-100); Monocytes Absolute Auto 600 /uL (0-900); Monocytes Percent Auto 7.7 % (3-14); Neutrophils Absolute Auto 5000 /uL (1500-7000); Neutrophils Percent Auto 65.8 % (50-75); Platelet Count 279 X10^3/uL (150-400); Red Blood Cell Count 4.58 X10^6/uL (4.5-5.9); Red Cell Distribution Width 14.1 % (11.6-14.8); White Blood Cell Count 7.6 X10^3/uL (4.5-11.0)
[2024-03-16 10:34] LABS: Alanine Aminotransferase 34 IU/L (<50); Albumin 4.4 g/dL (3.5-5.0); Albumin Globulin Ratio 1.4 (1.0-2.8); Alkaline Phosphatase 105 U/L (38-126); Aspartate Aminotransferase 25 IU/L (17-59); BUN Creatinine Ratio 20.2 (6-22); Bilirubin Total 0.6 mg/dL (0.2-1.3); Blood Urea Nitrogen 17 mg/dL (9-20); Calcium 9.7 mg/dL (8.4-10.2); Carbon Dioxide 28 mmol/L (22-32); Chloride 103 mmol/L (98-107); Cholesterol 313 mg/dL (140-199); Estimated Glomerular Filt Rate > 60 mL/min (>60); Globulin 3.2 g/dL (1.7-4.1); Glucose 112 mg/dL (70-100); HDL Cholesterol 36 mg/dL (40-60); HEMOLYSIS < 15 (0-50); Potassium 4.7 mmol/L (3.4-5.1); Sodium 137 mmol/L (137-145); Total Protein 7.6 g/dL (6.3-8.2); Triglycerides 451 mg/dL (35-150)
[2024-03-16 10:59] LABS: TSH w/ Reflex to FT4 1.27 uIU/mL (0.47-4.68)
== END ==
LOC: LAB 08:44
PROVIDERS: Referring Provider Physician Assistant; Visit Provider Physician Assistant
DX: Z00.00 Encounter for general adult medical examination without abnormal findings (principal); E78.5 Hyperlipidemia, unspecified; E66.9 Obesity, unspecified
CPT/HCPCS: 36415; 80053; 80061; 84443; 85025